=== PATIENT | female | born 1980 | race Caucasian/White ===

== ENCOUNTER 2016-05-02 10:21 | Emergency (ER) | payer OTHER ==
[~2016-05-02 10:21] MED LIST: LORTA5 PO; PREN0.01 PO
[2016-05-02] MEDS ORDERED: LACTATED RINGER'S 1000 ML INJ 1,000 ML IV SCH (11:00)
[2016-05-02 11:09] LABS: COMMENT (UR) CULT NOT INDICATED; CULTURE IF INDICATED CULT NOT INDICATED; GLUCOSE,URINE NEG (NEG); KETONE, URINE NEG (NEG); MUCUS URINE FEW /lpf (OCC); NITRITE,URINE NEG (NEG); PH, URINE 7.5 (5.0-8.5); SQUAMOUS EPITHELIAL CELL URINE 3 /hpf (0-5); URINE COLOR LIGHT-YELLOW (YELLW/STRAW)
[2016-05-02 11:12] LABS: BACTERIA, URINE FEW /hpf; BLOOD, URINE TRACE (NEG)
--- NOTE | 2016-05-02 12:19 | PD ---
HPI Chief Complaint Contractions Date Seen: May 02, 2016 Time Seen: 11:30 (Adithya Wright MD R2) Travel History International Travel<30 Days: No Contact w/Intl Traveler<30Days: No Known Affected Area: No (Adithya Wright MD) History of Present Illness HPI 35 year old G1 at 20/6 weeks presenting with contractions that started yesterday. She reports contractions that are occurring every 3 to 4 minutes. She has no vaginal bleeding. She has white vaginal discharge, no sudden gush of fluids. She reports no complications in this , other than a marginal placenta previa. No headache, fever, shortness of breath, chest pain, epigastric pain, leg swelling. (Adithya Wright MD) History Past Medical History Narrative Medical None (Adithya Wright MD) Obstetric History Obstetric History at 20/6 weeks gestation Patient of Dr. Gray 1.) full term, vaginal delivery 2.) current, marginal placenta previa History of cone biopsy, cervix competent per report (Adithya Wright MD) Past Surgical History Narrative Surgical Cone biopsy (Adithya Wright MD) Family History Narrative Family History COPD - father (Adithya Wright MD) Social History Narrative Social History No drinking, drug, or tobacco use (Adithya Wright MD) Allergies-Medications (Allergen,Severity, Reaction): Coded Allergies: No Known Allergies (Verified , 03/31/14) Home Meds Reported Medications Vitamins 1 Tab PO DAILY 04/08/14 Review of Systems General / Constitutional: Weight Gain, No: Fever, Weight Loss Eyes: No: Diploplia, Blurred Vision, Visual changes HENT: No: Headaches, Vertigo, Lightheadedness Cardiovascular: No: Irregular Rhythm, Chest Pain or Discomfort, Palpitations, Tachycardia, Syncope Respiratory: No: Cough, Short of Breath, Wheezing Gastrointestinal: No: Nausea, Vomiting, Diarrhea, Abdominal Pain Genitourinary: No: Urgency, Frequency, Dysuria, Nocturia Musculoskeletal: No: Weakness, Cramping, Edema Skin: No Rash Neurologic: No: Weakness, Dizziness, Syncope Psychiatric: No: Anxiety, Depression Endocrine: No: Heat Intolerance, Cold Intolerance, Polydipsia, Polyuria Hematologic/Lymphatic: No Easy Bruising (Adithya Wright MD) Physical Exam Narrative GENERAL: Well-nourished, well-developed patient. SKIN: Warm and dry. HEAD: Normocephalic and atraumatic. EYES: No scleral icterus. No injection or drainage. ENT: No nasal drainage noted. Mucous membranes pink. Airway patent. NECK: Supple, trachea midline. No JVD. CARDIOVASCULAR: Regular rate and rhythm without murmurs, gallops, or rubs. RESPIRATORY: Breath sounds equal bilaterally. No accessory muscle use. ABDOMEN/GI: Abdomen soft, non-tender, bowel sounds present, no rebound, no guarding Gravid to 21 weeks size GENITOURINARY: Uterine Contractions: none 0 cm, thick, -3 FHT's: Category: Baseline: [-] Reactive: [-] Variability: [-] Decels: [-] EXTREMITIES: No cyanosis or edema. BACK: Nontender without obvious deformity. No CVA tenderness. NEUROLOGICAL: Awake and alert. Motor and sensory grossly within normal limits. Five out of 5 muscle strength in all muscle groups. Normal speech. (Adithya Wright MD R2) Data Data Vital Signs Reviewed: Yes Orders Vital Signs (Adult) .ON ADMISSION (05/02/16 10:29) ^ Labor Status (05/02/16 10:29) Urinalysis - C+S If Indicated (05/02/16 10:29) ^ Non Stress Test (05/02/16 10:29) ^ Hydration (05/02/16 10:29) Diet Regular Basic (05/02/16 Lunch) Comprehensive Metabolic Panel (05/02/16 10:29) Lactated Ringer's 1000 Ml Inj (Lr 1000 M (05/02/16 11:00) Ob/Psych Drug Screen, Urine (05/02/16 10:29) Complete Blood Count With Diff (05/02/16 10:29) Magnesium (Mg) (05/02/16 10:29) Phosphorus (Po4) (05/02/16 10:29) Blood Glucose (05/02/16 10:31) Electrocardiogram (05/02/16 ) Labs Laboratory Tests Test 05/02/16 10:57 Urine Color LIGHT-YELLOW Urine Turbidity CLEAR Urine pH 7.5 Urine Specific [place] 1.003 Urine Protein NEG Urine Glucose (UA) NEG Urine Ketones NEG Urine Occult Blood TRACE Urine Nitrite NEG Urine Bilirubin NEG Urine Urobilinogen LESS THAN 2.0 Urine Leukocyte Esterase LARGE Urine RBC 12 Urine WBC 6 Urine Squamous Epithelial 3 Cells Urine Bacteria FEW Urine Mucus FEW Microscopic Urinalysis Comment CULT NOT INDICATED (Adithya Wright MD R2) MDM Medical Record Reviewed: Yes Interpretation(s) 35 year old at 20/6 weeks gestation with report of contractions. - monitoring - Hydration - UA - Amnisure negative, done for report of discharge - FFN cannot be done this early Narrative Course / MDM 35 year old at 20/6 weeks gestation with report of contractions. No consistent contractions on monitor. - Discharge with close follow up with OB. - Amnisure negative - UA: no culture indicated - Continue expectant management (Adithya Wright MD R2) Diagnosis Diagnosis: Primary Impression: Pelvic cramping in antepartum period Disposition: 01 DISCHARGE HOME Condition: Good Attestation Patient seen and examined with the resident under direct supervision, I agree with the assessment and plan. (Lexa Prasad MD) Adithya Wright MD R2 May 02, 2016 12:19 Lexa Prasad MD May 02, 2016 17:47
[2016-05-02] MEDS ORDERED: ACETAMINOPHEN 325 MG TAB PO ONE (12:45)
== END 2016-05-02 13:03 | disposition home or self-care (01) ==
LOC: HOBED 10:21
DX: O26.892 Other specified pregnancy related conditions, second trimester (principal); R10.2 Pelvic and perineal pain; Z3A.20 20 weeks gestation of pregnancy
CPT/HCPCS: 76815; 81001; 84112; 96360; 96361; 99284; J7120

== ENCOUNTER 2016-09-11 07:45 | Inpatient (IN) | payer OTHER ==
[2016-09-11] VITALS (72 sets, daily range): BP systolic 75–155; BP diastolic 42–125; PULSE 59–104; RESP 18–20; TEMP 97.5–98.2
[~2016-09-11 07:45] MED LIST changes: -LORTA5 PO
[2016-09-11] MEDS ORDERED: LACTATED RINGER'S 1000 ML INJ 1,000 ML IV PRN (08:46)
[2016-09-11] MEDS ORDERED: MINERAL OIL 10 ML VIAL TOPICAL PRN (09:00)
[2016-09-11] MEDS ORDERED: CITRIC ACID-SODIUM CITRATE LIQ 30 ML UDC PO SCH (09:00)
[2016-09-11] MEDS ORDERED: LIDOCAINE HCL 1% 50 ML VIAL I-DERMAL PRN (09:00)
[2016-09-11] MEDS ORDERED: LIDOCAINE HCL 1% 50 ML VIAL INFIL PRN (09:00)
[2016-09-11] MEDS ORDERED: SODIUM CHLORID 0.9% 500 ML INJ 500 ML IV PRN (09:00)
[2016-09-11] MEDS ORDERED: OXYTOCIN 30 UNITS-500ML PREMIX 500 ML IV ONE (09:00)
[2016-09-11] MEDS ORDERED: SODIUM CHLOR 0.9% 1000 ML INJ 1,000 ML IV PRN (09:06)
[2016-09-11 09:11] LABS: BACTERIA, URINE RARE /hpf; BLOOD, URINE MOD (NEG); GLUCOSE,URINE NEG (NEG); HYALINE CAST, URINE 1 /lpf (RARE); KETONE, URINE NEG (NEG); MUCUS URINE FEW /lpf (OCC); NITRITE,URINE NEG (NEG); SQUAMOUS EPITHELIAL CELL URINE 9 /hpf (0-5); TRANSITIONAL EPI CELLS, URINE <1 /hpf; URINE COLOR YELLOW (YELLW/STRAW)
[2016-09-11 09:16] LABS: COMMENT (UR) CULTURE INDICATED; CULTURE IF INDICATED CULTURE INDICATED
[2016-09-11 09:19] LABS: AUTOMATED NEUTROPHIL # 5.3 TH/MM3 (1.8-7.7); BASOPHIL % 0.3 % (0.0-2.0); EOSINOPHIL # 0.1 TH/MM3 (0-0.4); EOSINOPHIL % 1.1 % (0.0-4.0); HEMATOCRIT 34.9 % (35.0-46.0); HEMO FLAGS DIFF FINAL; LYMPHOCYTE # 1.1 TH/MM3 (1.0-4.8); MEAN CELL VOLUME 97.3 FL (80.0-100.0); MEAN CORPUSCULAR HEMOGLOBIN 33.4 PG (27.0-34.0); MEAN CORPUSCULAR HGB CONC 34.4 % (32.0-36.0); MONO % 7.3 % (0.0-8.0); NEUT % 75.3 % (16.0-70.0); PLATELET COUNT 148 TH/MM3 (150-450); RED BLOOD COUNT 3.59 MIL/MM3 (4.00-5.30)
[2016-09-11] MEDS ORDERED: OXYTOCIN 30 UNITS/NS 500ML PREMIX IV SCH (10:45)
[2016-09-11] MEDS: LACTATED RINGER'S 1000 ML INJ 1,000 ML IV SCH ×3 (11:58→14:44)
--- NOTE | 2016-09-11 11:58 | HHI.HP ---
HPI Chief Complaint Induction Date Seen: September 11, 2016 Travel History International Travel<30 Days: No Contact w/Intl Traveler<30Days: No History of Present Illness HPI Patient is a 35 year old at 39-5/7 weeks gestation who presents today for induction. She denies any vaginal bleeding or discharge. No gush or leaking of fluid. Irregular contractions. No complications. History Past Medical History Medical History: Denies Significant Hx Obstetric History Obstetric History s/p term in 2013 Past Surgical History Narrative Surgical LEEP and cone biopsy Family History Family History: Negative Social History Alcohol Use: No Tobacco Use: No Substance Abuse: No Allergies-Medications (Allergen,Severity, Reaction): Coded Allergies: No Known Allergies (Verified , 03/31/14) Home Meds Reported Medications Multivit/Min/Fol Ac/Iron/Pren ( Vit ( Plus)) Tab1 Tab PO DAILY 04/08/14 Review of Systems Except as stated in HPI: all other systems reviewed are Neg General / Constitutional: No: Fever, Chills Eyes: No: Visual changes HENT: No: Headaches Cardiovascular: No: Chest Pain or Discomfort Respiratory: No: Short of Breath Gastrointestinal: No: Abdominal Pain Genitourinary: No: Pelvic Pain, Discharge, Vaginal Bleeding Musculoskeletal: No: Edema Neurologic: No: Headache Psychiatric: No: Substance Abuse Physical Exam Vital Signs Date Time Temp Pulse Resp B/P Pulse Ox O2 Delivery O2 Flow Rate FiO2 09/11/16 11:48 70 101/61 09/11/16 11:29 98.1 09/11/16 11:29 62 109/67 09/11/16 11:28 18 09/11/16 10:56 18 09/11/16 09:53 18 09/11/16 09:52 65 104/61 Narrative GENERAL: Well-nourished, well-developed patient. SKIN: Warm and dry. HEAD: Normocephalic and atraumatic. EYES: No scleral icterus. No injection or drainage. ENT: No nasal drainage noted. Mucous membranes pink. Airway patent. NECK: Supple, trachea midline. No JVD. CARDIOVASCULAR: Regular rate and rhythm without murmurs, gallops, or rubs. RESPIRATORY: Breath sounds equal bilaterally. No accessory muscle use. ABDOMEN/GI: Abdomen soft, non-tender, bowel sounds present, no rebound, no guarding Gravid to 39 weeks size GENITOURINARY: External Genitalia: intact and normal in appearance BUS glands: wnl Cervix: posterior Dilatation: 3-4 Effacement: 50 Station: -2 Presentation: vertex Membranes: AROM, clear fluid Uterine Contractions: irregular FHT's: Category: I Baseline: 130 Reactive: + Variability: moderate Decels: none EXTREMITIES: No cyanosis or edema. BACK: Nontender without obvious deformity. No CVA tenderness. NEUROLOGICAL: Awake and alert. Motor and sensory grossly within normal limits. Normal speech. Data Data Vital Signs Reviewed: Yes Orders Admit To Inpatient (09/11/16 ) Code Status (09/11/16 08:46) Vital Signs (Adult) .Per protocol (09/11/16 08:46) Activity Oob Ad Kiah (09/11/16 08:46) Heart (09/11/16 08:46) Amnioinfusion (09/11/16 08:46) Urinary Catheter Management .ONCE (09/11/16 08:46) Lactated Ringer's 1000 Ml Inj (Lr 1000 M (09/11/16 08:46) Lactated Ringer's 1000 Ml Inj (Lr 1000 M (09/11/16 08:46) Sodium Chlorid 0.9% 500 Ml Inj (Ns 500 M (09/11/16 09:00) Sodium Chlor 0.9% 1000 Ml Inj (Ns 1000 M (09/11/16 09:06) Lidocaine 1% Inj (50 Ml) (Xylocaine 1% I (09/11/16 09:00) Citric Acid-Sodium Citrate Liq (Bicitra (09/11/16 09:00) Complete Blood Count With Diff (09/11/16 08:46) Hold Clot (09/11/16 08:46) Abo/Rh Blood Type (09/11/16 08:46) Urinalysis - C+S If Indicated (09/11/16 08:46) Resp Oxygen Non Rebreathe Mask (09/11/16 ) ^ Epidural / Intrathecal Infus (09/11/16 08:46) Oxytocin 30 Units-500ml Premix (Pitocin (09/11/16 09:00) Lidocaine 1% Inj (50 Ml) (Xylocaine 1% I (09/11/16 09:00) Light Mineral Oil (Muri-Lube Oil) (09/11/16 09:00) Inpatient Certification (09/11/16 ) Specimen To Be Collected PRN (09/11/16 08:46) Urine Culture (09/11/16 08:27) Oxytocin 30 Units-500ml Premix (Pitocin (09/11/16 10:45) ^ Non Stress Test (09/11/16 10:51) Response To Medication .Post New Med Administration, Reaction (09/11/16 10:51) ^ Discontinue Medication (09/11/16 10:51) Labs Laboratory Tests Test 09/11/16 08:27 White Blood Count 7.0 Red Blood Count 3.59 Hemoglobin 12.0 Hematocrit 34.9 Mean Corpuscular Volume 97.3 Mean Corpuscular Hemoglobin 33.4 Mean Corpuscular Hemoglobin 34.4 Concent Red Cell Distribution Width 13.0 Platelet Count 148 Mean Platelet Volume 9.5 Neutrophils (%) (Auto) 75.3 Lymphocytes (%) (Auto) 16.0 Monocytes (%) (Auto) 7.3 Eosinophils (%) (Auto) 1.1 Basophils (%) (Auto) 0.3 Neutrophils # (Auto) 5.3 Lymphocytes # (Auto) 1.1 Monocytes # (Auto) 0.5 Eosinophils # (Auto) 0.1 Basophils # (Auto) 0.0 CBC Comment DIFF FINAL Differential Comment Urine Color YELLOW Urine Turbidity HAZY Urine pH 7.0 Urine Specific [place] 1.015 Urine Protein TRACE Urine Glucose (UA) NEG Urine Ketones NEG Urine Occult Blood MOD Urine Nitrite NEG Urine Bilirubin NEG Urine Urobilinogen LESS THAN 2.0 Urine Leukocyte Esterase LARGE Urine RBC 3 Urine WBC 16 Urine Squamous Epithelial 9 Cells Urine Transitional Epithelial <1 Cells Urine Amorphous Sediment SMALL Urine Bacteria RARE Urine Hyaline Casts 1 Urine Mucus FEW Microscopic Urinalysis Comment CULTURE INDICATED Blood Type O POSITIVE Band and Hold Date/Time Procedure Status Source Growth 09/11/16 08:27 Urine Culture Received Urine Clean Catch Pending Assessment/Plan Assessment and Plan 35 year old at 39-5/7 weeks gestation. 1. IUP- Category I tracing, reassuring. 2. IOL- AROM with clear fluid. Labor augmentation with Pitocin. 3. GBS negative. sdw Clari Garcia MD R2 September 11, 2016 11:58
[2016-09-11] MEDS ORDERED: fentaNYL 2MCG-BUPIV 0.125% INJ 100 ML ONE (12:36)
[2016-09-11] MEDS ORDERED: ePHEDrine/NS 25 MG/5 ML SYR ONE (12:37)
[2016-09-11] MEDS ORDERED: fentaNYL 2MCG-BUPIV 0.125% 100 ML EPIDURAL SCH (14:00)
[2016-09-11] MEDS ORDERED: ePHEDrine/NS 25 MG/5 ML SYR IV PRN (14:00)
[2016-09-11] MEDS ORDERED: DO NOT ADMINISTER ANTICOAGULANTS PRN (14:00)
[2016-09-11] MEDS ORDERED: NO SYSTEM NARCOTICS PRN (14:00)
[2016-09-11] MEDS ORDERED: BUPIVACAINE HCL PF 0.25% 10 ML VIAL ONE (15:31)
--- NOTE | 2016-09-11 17:20 | PD.OB.DELI ---
Delivery Date: September 11, 2016 Anesthesia: Epidural Episiotomy: None Vaginal Delivery: Normal Presentation: Occiput anterior Nuchal Cord: None Delayed cord clamping (45 sec): Yes Infant: Female One Minute : 8 Five Minute : 9 Weight: [id number] Placenta: Manual removal, Intact, 3 vessel cord Laceration: Perineal laceration, 2 deg Repair: Vicryl running Additional Information EBL 250cc. Baby [place]. Supervision and laceration repair performed by Dr. Gray. Clari Murrieta MD R2 September 11, 2016 17:20
[2016-09-11] MEDS ORDERED: DOCUSATE SODIUM 50 MG/SENNA 8.6 MG TAB PO PRN (17:30)
[2016-09-11] MEDS ORDERED: WITCH HAZEL 50%/GLYCERIN 12.5% 40 PAD JAR TOPICAL PRN (17:30)
[2016-09-11] MEDS ORDERED: BENZOCAINE 20% TOPICAL SPRAY 60 ML CAN TOPICAL PRN (17:30)
[2016-09-11] MEDS ORDERED: oxyCODONE/ACETAMINOPHEN 5 MG/325 MG TAB PO PRN ×2 (17:30)
[2016-09-11] MEDS ORDERED: ALUMINUM/MAGNESIUM/SIMETH 30 ML CUP PO PRN (17:30)
[2016-09-11] MEDS ORDERED: ACETAMINOPHEN 325 MG TAB PO PRN (17:30)
[2016-09-11] MEDS ORDERED: ONDANSETRON ODT 4 MG TAB PO PRN (17:30)
[2016-09-11] MEDS ORDERED: IBUPROFEN 600 MG TAB PO PRN (17:30)
[2016-09-11] MEDS ORDERED: SODIUM CHLORIDE 0.9% FLUSH 10 ML FLUSH IV FLUSH PRN (17:30)
[2016-09-11] MEDS ORDERED: MEASLES, MUMPS, RUBELLA VACCINE 0.5 ML VIAL SQ ONE (18:00)
[2016-09-11] MEDS ORDERED: DIPHTH/TETANUS/ACEL PERTUSSIS (BOOSTER) 0.5 ML VIAL/PFS IM ONE (18:00)
[2016-09-11] MEDS ORDERED: SODIUM CHLORIDE 0.9% FLUSH 10 ML FLUSH IV FLUSH SCH (21:00)
[2016-09-11] MEDS ORDERED: ZOLPIDEM TARTRATE 5 MG TAB PO PRN (21:00)
[2016-09-12 08:00] VITALS: BP 101/63; PULSE 70; RESP 16; TEMP 98
--- NOTE | 2016-09-12 11:16 | HHI.OB ---
Subjective Post Day: 1 Objective Vitals/I&O Vital Signs Date Time Temp Pulse Resp B/P Pulse Ox O2 Delivery O2 Flow Rate FiO2 09/12/16 08:00 98.0 70 16 101/63 09/11/16 19:12 18 09/11/16 18:46 78 102/69 09/11/16 18:31 64 105/55 09/11/16 18:30 18 09/11/16 18:29 97.7 09/11/16 18:16 64 105/56 09/11/16 18:01 67 112/62 09/11/16 17:55 97.5 09/11/16 17:55 18 09/11/16 17:46 76 105/62 09/11/16 17:40 18 09/11/16 17:31 79 100/80 09/11/16 17:25 18 09/11/16 17:16 79 116/55 09/11/16 17:01 81 111/56 09/11/16 16:51 73 114/54 09/11/16 16:46 93 115/58 09/11/16 16:38 75 120/60 09/11/16 16:31 102 155/125 09/11/16 16:16 97 130/94 09/11/16 16:10 83 119/67 09/11/16 16:06 92 107/69 09/11/16 16:04 79 115/61 09/11/16 16:01 90 114/66 09/11/16 15:57 104 116/60 09/11/16 15:55 89 116/64 09/11/16 15:51 78 103/61 09/11/16 15:49 94 104/67 09/11/16 15:45 81 18 113/59 09/11/16 15:43 83 108/54 09/11/16 15:40 89 121/61 09/11/16 15:38 98 130/63 09/11/16 15:36 67 114/61 09/11/16 15:33 59 117/61 09/11/16 15:31 87 89/59 09/11/16 15:31 99 85/51 09/11/16 15:21 67 102/59 09/11/16 15:11 60 103/53 09/11/16 15:01 66 114/61 09/11/16 14:51 72 112/56 09/11/16 14:42 98.1 09/11/16 14:40 64 115/52 09/11/16 14:40 18 09/11/16 14:31 65 93/55 09/11/16 14:28 62 99/54 09/11/16 14:27 59 101/42 09/11/16 14:24 59 100/45 09/11/16 14:23 59 103/49 09/11/16 14:17 62 97/45 09/11/16 14:17 62 97/43 09/11/16 14:16 61 95/45 09/11/16 14:09 18 09/11/16 14:01 73 116/70 09/11/16 13:45 61 114/64 09/11/16 13:31 67 107/63 09/11/16 13:28 20 09/11/16 13:26 65 115/56 09/11/16 13:21 62 104/59 09/11/16 13:15 63 108/58 09/11/16 13:13 67 09/11/16 13:13 110/61 09/11/16 13:12 66 97/49 09/11/16 13:11 87 87/51 09/11/16 12:55 60 102/55 09/11/16 12:55 20 09/11/16 12:55 18 09/11/16 12:54 98.2 09/11/16 12:51 63 101/52 09/11/16 12:48 74 106/77 09/11/16 12:46 60 117/67 09/11/16 12:40 63 106/62 09/11/16 12:39 61 75/57 09/11/16 11:58 18 09/11/16 11:48 70 101/61 09/11/16 11:29 98.1 09/11/16 11:29 62 109/67 09/11/16 11:28 18 Objective Remarks GENERAL: Well-nourished, well-developed patient. CARDIOVASCULAR: Regular rate and rhythm without murmurs, gallops, or rubs. RESPIRATORY: Breath sounds equal bilaterally. No accessory muscle use. ABDOMEN/GI: Abdomen soft, non-tender. Fundus: Firm, non-tender at umbilicus. GENITOURINARY: Light to moderate bleeding. EXTREMITIES: No cyanosis or edema, non-tender, without signs of DVT. Medications and IVs Current Medications Medications (Trade) Dose Ordered Sig/Gautam Route Start Time Stop Time Status Last Admin Lactated Ringer's 1,000 ml @ 125 mls/hr Q8H IV 09/11/16 08:46 09/11/16 14:44 Lactated Ringer's 1,000 ml @ 3,000 mls/hr Q20M PRN IV 09/11/16 08:46 (NS 1000 ml Inj) 1,000 ml @ 100 mls/hr Q10H PRN IV 09/11/16 09:06 Mineral Oil 10 ml 10 ml UNSCH PRN TOPICAL 09/11/16 09:00 (Pitocin 30 Units-NS 500 ml Premix) 500 ml @ 0 mls/hr TITRATE IV 09/11/16 10:45 09/11/16 11:46 (fentaNYL INJ) 50 mcg Q1H PRN IV PUSH 09/11/16 12:45 (fentaNYL INJ) 100 mcg Q1H PRN IV PUSH 09/11/16 12:45 Miscellaneous Information No systemic narcotics to be given except... UNSCH PRN .XX 09/11/16 14:00 09/12/16 13:59 Miscellaneous Information DO NOT ADMINISTER ANY ANTICOAGUL... UNSCH PRN .XX 09/11/16 14:00 09/12/16 13:59 (fentaNYL 2MCG-BUPIV 0.125% INJ) 100 ml @ 0 mls/hr TITRATE EPIDURAL 09/11/16 14:00 (ePHEDrine/NS 25 MG/5 ML SYR) 10 mg UNSCH PRN IV 09/11/16 14:00 09/12/16 13:59 09/11/16 14:45 (NS Flush) 2 ml BID IV FLUSH 09/11/16 21:00 (NS Flush) 2 ml UNSCH PRN IV FLUSH 09/11/16 17:30 (Tylenol) 650 mg Q4H PRN PO 09/11/16 17:30 (Motrin) 600 mg Q6H PRN PO 09/11/16 17:30 (Percocet 5-325 Mg) 1 tab Q4H PRN PO 09/11/16 17:30 (Percocet 5-325 Mg) 2 tab Q4H PRN PO 09/11/16 17:30 (Americaine 20% Top Spr) 1 spray Q4H PRN TOPICAL 09/11/16 17:30 (Tucks Pads) 1 applic QID PRN TOPICAL 09/11/16 17:30 (Bee-Colace) 2 tab Q12H PRN PO 09/11/16 17:30 (Ambien) 5 mg HS PRN PO 09/11/16 21:00 (Mag-Al Plus Susp Liq) 15 ml Q8H PRN PO 09/11/16 17:30 (Zofran Odt) 4 mg Q6H PRN PO 09/11/16 17:30 Assessment/Plan Problem List: (1) Normal vaginal delivery Plan: routine Assessment and Plan pt doing well not taking anything for pain, pt aware medication available bonding with , well routine Discharge Planning consider dc home tomorrow Haritha Hargrove September 12, 2016 11:16
--- NOTE | 2016-09-12 11:17 | HHI.DCPOC ---
Discharge Care Plan Diagnosis: (1) Normal vaginal delivery Your Health Problems Are: Vaginal delivery Report Symptoms to Your Doctor -Temperate above 100.5 degrees -Redness, of incision or excessive or foul smelling drainage -Unusual pain or calf pain -Increased vaginal bleeding -Painful or difficulty urinating -Feelings of extreme sadness or anxiety after 2 weeks Goals to Promote Your Health * To prevent worsening of your condition and complications * To maintain your health at the optimal level Directions to Meet Your Goals Take your medications as prescribed Follow your dietary instruction Follow activity as directed Ensure plenty of rest for recovery Drink fluids for hydration Keep your appointments as scheduled Take your immunizations and boosters as scheduled If your symptoms worsen call your PCP, if no PCP go to Urgent Care Center or Emergency Room Smoking is Dangerous to Your Health. Avoid second hand smoke Call the 24-hour crisis hotline for domestic abuse at Haritha Hargrove September 12, 2016 11:17
--- NOTE | 2016-09-12 11:20 | HHI.DS ---
Admission Date September 11, 2016 at 07:45 Discharge Date: September 13, 2016 Admitting Diagnosis term 39+ weeks induction, arom and pitocin Diagnosis: (1) Normal vaginal delivery Diagnosis: Principal Delivery Date: September 11, 2016 Vaginal Delivery: Normal : Female Brief History 39 week induction AROM/pitocin . Hospital Course routine Pt Condition on Discharge: Good Discharge Disposition: Discharge Home Discharge Instructions Diet Instructions: As Tolerated, No Restrictions Additional Diet Instructions: Drink at least 8 - 16 oz bottles of water a day Activities You Can Perform: Shower Only-No Bath, Sitz Bath Activities to Avoid: Lifting/Bending, Sexual Activity Additional Activity Instruc.: No driving until off pain medications Do not lift anything heavier than your baby in an infant carrier Follow up Referrals: JOB ANALYST - 2 Weeks @ [facility] [place] New Medications: Ibuprofen (Ibuprofen) 600 Mg Tab 600 MG PO Q6H PRN CRAMPING #30 TAB Continued Medications: Multivit/Min/Fol Ac/Iron/Pren ( Vit ( Plus)) Tab 1 TAB PO DAILY TAB Haritha Hargrove September 12, 2016 11:20
[2016-09-12 15:31] VITALS: BP 108/70; PULSE 70; RESP 18; TEMP 98
[2016-09-12 21:00] VITALS: BP 87/52; PULSE 57; RESP 18; TEMP 98.4
[2016-09-13 07:50] VITALS: BP 102/68; PULSE 57; RESP 18; TEMP 97.8; TEMP 97.9
[2016-09-13] MEDS ORDERED: IBUP-232 PO (07:57)
--- NOTE | 2016-09-13 08:40 | HHI.OB ---
Subjective Remarks No acute issues overnight. Vitals are stable, patient remains afebrile. Her pain is well controlled with Motrin. She is without difficulty. Objective Vitals/I&O Vital Signs Date Time Temp Pulse Resp B/P Pulse Ox O2 Delivery O2 Flow Rate FiO2 09/12/16 21:00 57 18 87/52 09/12/16 21:00 98.4 09/12/16 15:31 98.0 70 18 108/70 Objective Remarks GENERAL: Well-nourished, well-developed patient. CARDIOVASCULAR: Regular rate and rhythm without murmurs, gallops, or rubs. RESPIRATORY: Breath sounds equal bilaterally. No accessory muscle use. ABDOMEN/GI: Abdomen soft, non-tender. Fundus: Firm, non-tender at umbilicus. GENITOURINARY: Light to moderate bleeding. EXTREMITIES: No cyanosis or edema, non-tender, without signs of DVT. Medications and IVs Current Medications Medications (Trade) Dose Ordered Sig/Gautam Route Start Time Stop Time Status Last Admin Lactated Ringer's 1,000 ml @ 125 mls/hr Q8H IV 09/11/16 08:46 09/11/16 14:44 Lactated Ringer's 1,000 ml @ 3,000 mls/hr Q20M PRN IV 09/11/16 08:46 (NS 1000 ml Inj) 1,000 ml @ 100 mls/hr Q10H PRN IV 09/11/16 09:06 Mineral Oil 10 ml 10 ml UNSCH PRN TOPICAL 09/11/16 09:00 (Pitocin 30 Units-NS 500 ml Premix) 500 ml @ 0 mls/hr TITRATE IV 09/11/16 10:45 09/11/16 11:46 (fentaNYL INJ) 50 mcg Q1H PRN IV PUSH 09/11/16 12:45 Fentanyl Citrate 100 mcg 100 mcg Q1H PRN IV PUSH 09/11/16 12:45 (fentaNYL 2MCG-BUPIV 0.125% INJ) 100 ml @ 0 mls/hr TITRATE EPIDURAL 09/11/16 14:00 (NS Flush) 2 ml BID IV FLUSH 09/11/16 21:00 (NS Flush) 2 ml UNSCH PRN IV FLUSH 09/11/16 17:30 (Tylenol) 650 mg Q4H PRN PO 09/11/16 17:30 (Motrin) 600 mg Q6H PRN PO 09/11/16 17:30 09/12/16 13:22 (Percocet 5-325 Mg) 1 tab Q4H PRN PO 09/11/16 17:30 09/12/16 13:23 (Percocet 5-325 Mg) 2 tab Q4H PRN PO 09/11/16 17:30 (Americaine 20% Top Spr) 1 spray Q4H PRN TOPICAL 09/11/16 17:30 09/12/16 13:22 (Tucks Pads) 1 applic QID PRN TOPICAL 09/11/16 17:30 09/12/16 13:23 (Bee-Colace) 2 tab Q12H PRN PO 09/11/16 17:30 (Ambien) 5 mg HS PRN PO 09/11/16 21:00 (Mag-Al Plus Susp Liq) 15 ml Q8H PRN PO 09/11/16 17:30 (Zofran Odt) 4 mg Q6H PRN PO 09/11/16 17:30 Assessment/Plan Problem List: (1) Normal vaginal delivery Plan: routine Assessment and Plan PPD 2 pt doing well pain well controlled bonding with , well discharge home today, follow-up in 2 weeks sdw Clari Garcia MD R2 September 13, 2016 08:40
[2016-09-13] MEDS: LACTATED RINGER'S 1000 ML INJ 1,000 ML IV SCH (08:46)
== END 2016-09-13 11:15 | disposition home or self-care (01) | DRG 775 ==
LOC: H2EA 07:45 → H1EA 19:37
PROVIDERS: ADMIT Obstetrics & Gynecology; ATTEND Obstetrics & Gynecology
PROC: 10E0XZZ Delivery of Products of Conception, External Approach (ICD-10-PCS; principal; 2016-09-11)
PROC: 0KQM0ZZ Repair Perineum Muscle, Open Approach (ICD-10-PCS; 2016-09-11)
PROC: 00HU33Z Insertion of Infusion Device into Spinal Canal, Percutaneous Approach (ICD-10-PCS; 2016-09-11)
PROC: 3E0R3CZ (ICD-10-PCS; 2016-09-11)
DX: O70.1 Second degree perineal laceration during delivery (principal); Z37.0 Single live birth; O09.523 Supervision of elderly multigravida, third trimester; Z3A.39 39 weeks gestation of pregnancy
CPT/HCPCS: 59025; 81001; 85025; 86900; 86901; 87086; 90715; J2590; J7120